=== PATIENT | male | born 1935 | race Caucasian/White ===

== ENCOUNTER 2017-04-15 08:23 | Emergency (ER) | payer MEDICARE, BC ==
[~2017-04-15] VITALS: Ht 177.8 cm; Wt 54.0 kg
[~2017-04-15 08:23] MED LIST: AMOXICILLIN500 MG OR; BENADRYL 50MG C50 MG OR; LISINOP/HCTZ1 TAB PO; LISINOPRIL5 MG PO; LUPRON2 WEE1; LYCOPENE10 MG OR; NO CURRENT MEDS
[2017-04-15] MEDS ORDERED: ADULT ASPIRIN R81 MG PO (09:18)
[2017-04-15] MEDS ORDERED: PROAIR HFA IN (09:19)
[2017-04-15 09:21] LABS: HEMATOCRIT 30.9 % (39.0-50.0); HEMOGLOBIN 9.8 g/dl (14.0-18.0); IMMATURE GRANULOCYTES 0.4 % (0.0-1.0); MEAN CELL VOLUME 91.7 fL CALC (80.0-100.0); MEAN CORPUSCULAR HGB 29.1 pG CALC (26.0-32.0); MEAN CORPUSCULAR HGB CONC 31.7 g/L CALC (32.0-36.0); NEUT# 6.56 thou/uL (1.82-7.42); RED BLOOD COUNT 3.37 mill/uL (4.70-6.10); RED CELL DISTRI WIDTH 15.8 % (11.5-15.5)
[2017-04-15 09:38] LABS: ALBUMIN 3.4 g/dL (3.2-5.0); ALKALINE PHOSPHATASE 168 u/l (38-126); ANION GAP 12 (6-22 (CALC)); BILIRUBIN, TOTAL 0.7 mg/dL (0.0-1.4); BUN 22 mg/dL (8-23); BUN/CREATININE RATIO 22 (12-20 (CALC)); CARBON DIOXIDE 28 mmol/l (22-30); CHLORIDE 105 mmol/l (95-108); GFR > 60 ML/MIN (>=60 (CALC)); GFR FOR AFR.AMER. > 60 ML/MIN (>=60 (CALC)); LIPASE 66 u/l (23-300); SGOT/AST 42 u/l (19-48); SGPT/ALT 37 u/l (11-66); SODIUM 141 mmol/l (137-146); TOTAL PROTEIN 6.1 g/dL (6.3-8.2)
[2017-04-15 09:43] LABS: POTASSIUM 3.8 mmol/l (3.5-5.1)
[2017-04-15 10:02] LABS: URINE BLOOD DIPSTICK TRACE-INTACT (NEGATIVE); URINE COLOR YELLOW; URINE GLUCOSE - DIPSTICK NEGATIVE (NEGATIVE); URINE KETONE NEGATIVE (NEGATIVE); URINE LEUK ESTERASE NEGATIVE (NEGATIVE); URINE NITRITE - DIPSTICK NEGATIVE (Negative); URINE SPECIFIC GRAVITY >=1.030; URINE UROBILINOGEN - DIPSTICK 0.2 E.U./dL (0.2)
[2017-04-15 10:03] LABS: URINE BILIRUBIN - DIPSTICK SMALL (NEGATIVE); URINE CLARITY CLEAR; URINE PROTEIN - DIPSTICK Trace mg/dL (NEG-TRACE)
[2017-04-15 10:07] LABS: INFLUENZA A NONE DETECTED (NONE DETECT); INFLUENZA B NONE DETECTED (NONE DETECT)
[2017-04-15 14:05] VITALS: BP 132/60
== END 2017-04-15 14:05 | disposition short-term general hospital (02) ==
LOC: ED 08:23
PROVIDERS: Family Medicine
DX: R91.8 Other nonspecific abnormal finding of lung field (principal); I63.9 Cerebral infarction, unspecified; J93.83 Other pneumothorax; J90 Pleural effusion, not elsewhere classified; G83.24 Monoplegia of upper limb affecting left nondominant side; F17.210 Nicotine dependence, cigarettes, uncomplicated; R29.702 NIHSS score 2; R42 Dizziness and giddiness; R07.9 Chest pain, unspecified
CPT/HCPCS: Q9967